=== PATIENT | female | born 1945 | race Caucasian/White ===

== ENCOUNTER 2024-04-17 01:47 | Inpatient (IN) | payer MEDICARE, OTHER ==
[~2024-04-17] VITALS: Ht 167.6 cm; Wt 77.1 kg
[2024-04-17] VITALS (14 sets, daily range): BP systolic 102–141; BP diastolic 61–74; TEMP 97.7–99.5; O2SAT 93–100
--- NOTE | 2024-04-17 01:50 | NUR ---
Patient was placed in the room at time of arrival, connected to monitor, O2, oxygen, RT was called and on site before patient arrived
--- NOTE | 2024-04-17 01:50 | NUR ---
At patient's arrival, she was seen by ALEX
[2024-04-17] MEDS ORDERED: ALBUTEROL SULFATE 2.5 MG/3 ML NEBU ONE (01:57)
[2024-04-17] MEDS ORDERED: IPRATROPIUM BROMIDE 0.5 MG/2.5 ML NEBU ONE (01:57)
[2024-04-17 02:09] LABS: BASOPHILS # (AUTO) 0.1 K/UL (0.0-0.2); BASOPHILS % (AUTO) 0.9 % (0.0-2.0); EOSINOPHILS # (AUTO) 0.8 K/uL (0.0-0.7); EOSINOPHILS % (AUTO) 10.1 % (0.0-7.0); HEMATOCRIT 31.8 % (31.2-41.9); HEMOGLOBIN 9.8 g/dL (10.9-14.3); LYMPHOCYTES # (AUTO) 3.8 K/uL (0.8-4.8); LYMPHOCYTES % (AUTO) 45.7 % (20.5-51.5); MEAN CORPUSCULAR HEMOGLOBIN 25.9 uug (24.7-32.8); MEAN CORPUSCULAR HGB CONC 31 g/dL (32.3-35.6); MEAN CORPUSCULAR VOLUME 84.1 fL (75.5-95.3); MONOCYTES # (AUTO) 0.6 K/uL (0.1-1.30); MONOCYTES % (AUTO) 7.2 % (0.0-11.0); NEUTROPHILS % (AUTO) 36.1 % (38.5-71.5); PLATELET COUNT (AUTO) 361 K/uL (179-408); RED BLOOD CELL COUNT(AUTO) 3.78 MIL/uL (3.63-4.92); WHITE BLOOD COUNT (AUTO) 8.3 K/uL (3.8-11.8)
[2024-04-17 02:13] LABS: DIFFERENTIAL COMMENT 1
[2024-04-17 02:16] LABS: CALCIUM 9.1 mg/dL (8.5-10.1); CARBON DIOXIDE 25 mmol/L (21-32); CHLORIDE 103 mmol/L (98-107); CREATININE 1.2 mg/dL (0.6-1.3); GLUCOSE 202 mg/dL (74-106); SODIUM SERUM 140 mmol/L (136-145); UREA NITROGEN, BLOOD 17 mg/dL (7-18)
[2024-04-17] MEDS: ALBUTEROL SULFATE 2.5 MG/3 ML NEBU NEB ONE (02:17)
[2024-04-17] MEDS: IPRATROPIUM BROMIDE 0.5 MG/2.5 ML NEBU NEB ONE (02:17)
[2024-04-17] MEDS ORDERED: methylPREDNISolone SOD SUCC 125 MG/2 ML VIAL ONE (02:27)
[2024-04-17 02:30] LABS: ALANINE AMINOTRANSFERASE 20 U/L (14-59); ALBUMIN 3.5 g/dL (3.4-5.0); ALKALINE PHOSPHATASE 106 U/L (50-136); ASPARTATE AMINOTRANSFERASE 14 U/L (15-37); BILIRUBIN,DIRECT 0.1 mg/dL (0.0-0.2); BILIRUBIN,TOTAL 0.2 mg/dL (0.2-1.0); NT-PRO BNP 176 pg/mL (0-125); TOTAL PROTEIN, SERUM 7.3 g/dL (6.4-8.2)
[2024-04-17] MEDS: methylPREDNISolone SOD SUCC 125 MG/2 ML VIAL IV ONE (02:30)
--- NOTE | 2024-04-17 02:30 | NUR ---
Administered medication as prescribed. Assisted patient into comfortable position. safety and comfort measures in place. No S/S of distressed noted.
[2024-04-17] MEDS ORDERED: CALC-1026 PO (03:06)
[2024-04-17] MEDS ORDERED: LOSA25TA3 PO (03:06)
[2024-04-17] MEDS ORDERED: ZOLP5TAB2 PO (03:06)
[2024-04-17] MEDS ORDERED: MAGN200T5 PO (03:06)
[2024-04-17] MEDS ORDERED: ROSU5TAB PO (03:08)
[2024-04-17] MEDS ORDERED: ZOLP10TA2 PO (03:11)
--- NOTE | 2024-04-17 03:28 | NUR ---
Assisted patient into comfortable position. Safety and comfort measures in place. Monitoring vital signs closely. No S/S of distress noted.
[2024-04-17 03:40] LABS: ABG BASE EXCESS -2.2 mmol/L (-2.0-2.0); ABG PH 7.367 (7.340-7.440); ABG PO2 88.4 mmHg (75.0-100.0); ABG SITE LEFT RADIAL; ABG TOTAL HEMOGLOBIN 10.3 G/dL (12.0-16.0); AaDO2 96.5 mmHg; COHb 0.3 % (0.0-3.9); MetHb 0.2 % (0.0-1.5); O2Hb 95.6 % (94.0-97.0)
--- NOTE | 2024-04-17 04:13 | NUR ---
Paged [facility] for panel call. Awaiting call back from DEANDRE Cunningham.
--- NOTE | 2024-04-17 04:21 | NUR ---
DEANDRE Cunningham on the phone with Dr. Marie for possible of admition.
[2024-04-17] MEDS ORDERED: REMEDY ESSENTIAL ZINC PASTE 113 GM TP PRN (04:30)
--- NOTE | 2024-04-17 04:31 | NUR ---
Called Tele, Report was given to Louis LEO.
[2024-04-17] MEDS ORDERED: ZOLPIDEM 5 MG TABLET PO PRN (05:15)
--- NOTE | 2024-04-17 06:53 | NUR ---
received patient at 0530, patient AO X 4, awake, NC 2 L, O2 sat 98%, skin intact, rt shoulder pain d/t fall, surgery last year. IV sites LFA, RTFA, patent, LFA works better. no reported pain, bed low lock, call light within reach. passed swallow evail. Will continue to monitor patient.
[2024-04-17 07:24] LABS: MAGNESIUM 2.2 mg/dL (1.8-2.4); PHOSPHOROUS 3.9 mg/dL (2.5-4.9)
--- NOTE | 2024-04-17 07:45 | NUR ---
RECEIVED PATIENT IN BED WITH EYES CLOSED AROUSABLE WITH VERBAL AND TACTILE STIMULI. ON O2 AT 2L NC SATURATING 96%, NO SS OF PAIN OR SOB.. SR ON MONITOR
--- NOTE | 2024-04-17 08:30 | NUR ---
SON CALLED AND WANTS MOM TO BE TRANSFERRED TO [place] UNDER THE CARE OF DR SMITH. ADVISED GIVEN PER PROTOCOL
[2024-04-17] MEDS: CALCIUM CARBONATE 500 MG TABLET PO SCH (08:39)
[2024-04-17] MEDS: MAGNESIUM OXIDE 400 MG TABLET PO SCH (08:40)
[2024-04-17] MEDS: LOSARTAN POTASSIUM 25 MG TABLET PO SCH (09:00)
--- NOTE | 2024-04-17 10:06 | NUR ---
OBTAINED ORDERS FROM DR. WILLOW Garcia FOR PT EVAL/TX. ORDER NOTED AND CARRIED OUT.
[2024-04-17] MEDS ORDERED: FLUO20CA42 PO (10:41)
[2024-04-17] MEDS ORDERED: IPRA3AMP23 IH (10:41)
[2024-04-17] MEDS ORDERED: AMLO-212 PO (10:41)
--- NOTE | 2024-04-17 11:21 | NUR ---
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
[2024-04-17] MEDS: methylPREDNISolone SOD SUCC 40 MG/ML VIAL IV SCH (11:54)
[2024-04-17] MEDS: IPRATROPIUM BROMIDE 0.5 MG/2.5 ML NEBU NEB PRN (13:25)
[2024-04-17] MEDS: ALBUTEROL SULFATE 2.5 MG/ 0.5 ML NEBU NEB PRN (13:25)
--- NOTE | 2024-04-17 13:32 | NUR ---
C/O SOB WITH ACCOMPANYING ANXIETY O2 SATS ON 3L NC 95%, DENIES CHEST PAIN. PRN BREATHING TX GIVEN AND WILL OBSERVE. SR/ST ON MONITOR
[2024-04-17] MEDS: ACETAMINOPHEN 325 MG TABLET PO PRN (13:42)
[2024-04-17] MEDS: FLUOXETINE HCL 20 MG CAPSULE PO SCH (13:42)
--- NOTE | 2024-04-17 13:42 | NUR ---
MEDICATED WITH TYLENOL FOR ROBERSON 02/10 WILL OBSERVE
[2024-04-17] MEDS: ONDANSETRON 4 MG/2 ML VIAL IV PRN (16:57)
[2024-04-17] MEDS: levoFLOXacin 500 MG/D5W 500 MG in PREMIXED 1 EACH IV SCH (18:20)
--- NOTE | 2024-04-17 18:31 | NUR ---
medicated again with tylenol for massey 03/12 will observe
--- NOTE | 2024-04-17 18:47 | NUR ---
STARTED ON LEVAQUIN FOR SUSPECTED INFECTION PER HOSPITALIST, SEE NOTES. AFEBRILE. SR ON MONITOR
--- NOTE | 2024-04-17 19:35 | NUR ---
Received patient ambulating to the bathroom. She is AAOx4, sinus rhythm on tele monitor. Supplemental O2 running at 3L/min via nasal cannula. SOB on exertion, upon returning to bed. Provided education on breathing techniques. No complaints of pain or discomfort at this time. IV site on left forearm is intact and patent, saline locked. Safety measures in place. Call light within easy reach.
[2024-04-17] MEDS: ATORVASTATIN 10 MG TABLET PO SCH (20:23)
[2024-04-17] MEDS: ZOLPIDEM 5 MG TABLET PO PRN (20:25)
--- NOTE | 2024-04-17 21:40 | NUR ---
Patient complaining of SOB. Saturation of 95% on 3L via NC. Again reminded patient to breath through pursed lips. Called RT for breathing treatment. Monitoring ongoing.
[2024-04-18] VITALS (12 sets, daily range): BP systolic 100–144; BP diastolic 52–79; TEMP 97.6–98.5; O2SAT 95–99
--- NOTE | 2024-04-18 05:10 | NUR ---
Patient refused Solu-Medrol citing sever osteoporosis. Explained purpose and benefits, however patient continued to refuse. Medication was already drawn up and therefore discarded.
[2024-04-18 07:29] LABS: BASOPHILS % (AUTO) 0.1 % (0.0-2.0); LYMPHOCYTES # (AUTO) 0.7 K/uL (0.8-4.8); LYMPHOCYTES % (AUTO) 5.4 % (20.5-51.5); MEAN CORPUSCULAR HEMOGLOBIN 26.4 uug (24.7-32.8); MEAN CORPUSCULAR HGB CONC 32 g/dL (32.3-35.6); MEAN CORPUSCULAR VOLUME 82.1 fL (75.5-95.3); MONOCYTES # (AUTO) 0.3 K/uL (0.1-1.30); MONOCYTES % (AUTO) 2.5 % (0.0-11.0); NEUTROPHILS # (AUTO) 11.6 K/uL (1.8-8.9); PLATELET COUNT (AUTO) 334 K/uL (179-408); RED BLOOD CELL COUNT(AUTO) 3.41 MIL/uL (3.63-4.92); RED CELL DISTRIBUTION WIDTH 18.4 % (12.3-17.7); WHITE BLOOD COUNT (AUTO) 12.6 K/uL (3.8-11.8)
--- NOTE | 2024-04-18 07:30 | NUR ---
0730 PT LAYING IN THE BED A/OX4 ON 3L NC SAT 97%, NO SOB OR DISTRESS NOTED, NO COMPLAIN OF PAIN. IV SITE IS INTACT AND PATENT. PT IS SINUS RHYTHM ON MONITOR. SCHEDULED MEDICATIONS ADMINISTERED, PT REFUSED MAGNESIUM. SAFETY MEASURES IN PLACE, CALL LIGHT IN REACH. 0900 RECEIVED A CALL FROM THE SON JONELLE, HE WANTS TO KNOW THE UPDATES (MD NOTIFIED), PLAN FOR THE DISCHARGE. [phone]
[2024-04-18 07:34] LABS: DIFFERENTIAL COMMENT 1
[2024-04-18 07:45] LABS: ALANINE AMINOTRANSFERASE 19 U/L (14-59); ALBUMIN 3.2 g/dL (3.4-5.0); ALKALINE PHOSPHATASE 83 U/L (50-136); ASPARTATE AMINOTRANSFERASE 6 U/L (15-37); BILIRUBIN,TOTAL 0.2 mg/dL (0.2-1.0); CALCIUM 8.8 mg/dL (8.5-10.1); CARBON DIOXIDE 28 mmol/L (21-32); CHLORIDE 104 mmol/L (98-107); CHOLESTEROL 172 mg/dL (<200); CREATININE 0.6 mg/dL (0.6-1.3); GLUCOSE 133 mg/dL (74-106); HDL CHOLESTEROL 97 mg/dL (40-60); MAGNESIUM 2.3 mg/dL (1.8-2.4); PHOSPHOROUS 3.7 mg/dL (2.5-4.9); POTASSIUM 4.5 mmol/L (3.5-5.1); SODIUM SERUM 139 mmol/L (136-145); TOTAL PROTEIN, SERUM 6.7 g/dL (6.4-8.2); TRIGLYCERIDES 35 MG/DL (30-150); UREA NITROGEN, BLOOD 14 mg/dL (7-18)
[2024-04-18 08:01] LABS: IRON, SERUM 14 ug/dL (50-175)
[2024-04-18] MEDS: LORATADINE 10 MG TABLET PO SCH (08:51)
[2024-04-18] MEDS: methylPREDNISolone SOD SUCC 40 MG/ML VIAL IV SCH (08:52)
[2024-04-18 09:11] LABS: THYROID STIMULATING HORMONE 0.299 mIU/mL (0.358-3.740)
[2024-04-18] MEDS: IPRATROPIUM BROMIDE 0.5 MG/2.5 ML NEBU NEB SCH (12:07)
[2024-04-18] MEDS: ALBUTEROL SULFATE 2.5 MG/3 ML NEBU NEB SCH (12:07)
[2024-04-18] MEDS: MONTELUKAST SODIUM 10 MG TABLET PO SCH (17:23)
[2024-04-18] MEDS: MAG HYDROX/AL HYDROX/SIMETH 30 ML LIQUID UDC PO PRN (19:44)
--- NOTE | 2024-04-18 20:19 | NUR ---
received patient alert oriented, no sob no chest pain, tele monitor sinus rhythm 83, given maalox for stomach upset but not effective, notify John Collins with order of protonix 40 mg po once.
[2024-04-18] MEDS: PANTOPRAZOLE SODIUM 40 MG TABLET.DR PO ONE (20:29)
--- NOTE | 2024-04-18 20:31 | NUR ---
solu medrol iv not given, no iv lines, refused to have new iv lines, gets agitated. patient alert oriented,
--- NOTE | 2024-04-18 22:27 | NUR ---
notify ekaterina cadet not working yet, request tums, with order.
[2024-04-18] MEDS: CALCIUM CARBONATE 500 MG TAB.CHEW PO PRN (22:41)
--- NOTE | 2024-04-18 22:43 | NUR ---
patient still awake, has lots of anxiety, refused to take any meds for anxiety, complain of constipation, offered MOM but refused.
[2024-04-19] MEDS: MAGNESIUM HYDROXIDE 30 ML LIQUID UDC PO PRN (00:55)
--- NOTE | 2024-04-19 00:57 | NUR ---
patient unable to sleep, given Ambien 5mg repeat dose per order. request MOM for constipation, cont to monitor.
[2024-04-19 05:59] VITALS: O2SAT 98
[2024-04-19 07:09] LABS: BASOPHILS % (AUTO) 0.1 % (0.0-2.0); EOSINOPHILS % (AUTO) 0.1 % (0.0-7.0); HEMATOCRIT 28.6 % (31.2-41.9); LYMPHOCYTES # (AUTO) 2.8 K/uL (0.8-4.8); LYMPHOCYTES % (AUTO) 28.7 % (20.5-51.5); MEAN CORPUSCULAR HEMOGLOBIN 26.2 uug (24.7-32.8); MEAN CORPUSCULAR HGB CONC 32 g/dL (32.3-35.6); MEAN CORPUSCULAR VOLUME 82.6 fL (75.5-95.3); MONOCYTES # (AUTO) 0.8 K/uL (0.1-1.30); MONOCYTES % (AUTO) 8.5 % (0.0-11.0); NEUTROPHILS # (AUTO) 6.1 K/uL (1.8-8.9); NEUTROPHILS % (AUTO) 62.6 % (38.5-71.5); PLATELET COUNT (AUTO) 321 K/uL (179-408); RED BLOOD CELL COUNT(AUTO) 3.46 MIL/uL (3.63-4.92); RED CELL DISTRIBUTION WIDTH 18.2 % (12.3-17.7); WHITE BLOOD COUNT (AUTO) 9.8 K/uL (3.8-11.8)
[2024-04-19 07:23] LABS: C-REACTIVE PROTEIN 0.05 mg/dL (0.00-0.30); DIFFERENTIAL COMMENT 1; MAGNESIUM 2.5 mg/dL (1.8-2.4)
[2024-04-19 07:24] LABS: CALCIUM 8.8 mg/dL (8.5-10.1); CARBON DIOXIDE 31 mmol/L (21-32); CHLORIDE 106 mmol/L (98-107); CREATININE 0.7 mg/dL (0.6-1.3); GLUCOSE 87 mg/dL (74-106); POTASSIUM 3.9 mmol/L (3.5-5.1); SODIUM SERUM 142 mmol/L (136-145); UREA NITROGEN, BLOOD 23 mg/dL (7-18)
[2024-04-19 07:33] VITALS: O2SAT 98
[2024-04-19 07:47] LABS: THYROID STIMULATING HORMONE 0.618 mIU/mL (0.358-3.740)
[2024-04-19] MEDS ORDERED: MAGNESIUM OXIDE 400 MG TABLET PO SCH (09:00)
--- NOTE | 2024-04-19 09:20 | NUR ---
0730 PT LAYING IN THE BED A/OX4 ON RA SAT 97%, NO SOB OR DISTRESS NOTED, NO COMPLAIN OF ABDOMINAL PAIN, N/V. PT IS SINUS RHYTHM ON MONITOR. SCHEDULED MEDICATIONS ADMINISTERED, PT REFUSED CALCIUM AND SOLU MEDROL. PT IS AGITATED BECAUSE WASN'T ABLE TO SLEEP THE WHOLE NIGHT. SAFETY MEASURES IN PLACE, CALL LIGHT IN REACH.
[2024-04-19 11:35] VITALS: O2SAT 95
[2024-04-19 11:45] VITALS: O2SAT 99
[2024-04-19 12:00] VITALS: BP 150/81; TEMP 97.2; O2SAT 97
[2024-04-19] MEDS ORDERED: MONT10TA33 PO (12:53)
[2024-04-19] MEDS ORDERED: LORA-114 PO (12:53)
--- NOTE | 2024-04-19 13:49 | NUR ---
1346 PT DISCHARGED VS [facility]NL NO SOB OR DISTRESS NOTED, NO COMPLAIN OF PAIN. DISCHARGE INSTRUCTIONS PROVIDED PT VERBALIZED UNDERSTANDING. PT LEFT VIA THE PRIVATE CAR WITH DAUGHTER BLAYNE
== END 2024-04-19 14:30 | disposition home or self-care (01) | DRG 190 ==
LOC: ER 01:54 → TELE3 04:21 → MEDSURG3 04-19 09:45
PROVIDERS: ATTEND Internal Medicine
DX: J43.9 Emphysema, unspecified (principal); J96.21 Acute and chronic respiratory failure with hypoxia; J96.22 Acute and chronic respiratory failure with hypercapnia; J44.0 Chronic obstructive pulmonary disease with (acute) lower respiratory infection; E44.1 Mild protein-calorie malnutrition; J31.0 Chronic rhinitis; M81.0 Age-related osteoporosis without current pathological fracture; R94.31 Abnormal electrocardiogram [ECG] [EKG]; J20.8 Acute bronchitis due to other specified organisms; E66.9 Obesity, unspecified; E88.09 Other disorders of plasma-protein metabolism, not elsewhere classified; Z68.27 Body mass index [BMI] 27.0-27.9, adult; E78.5 Hyperlipidemia, unspecified; D50.9 Iron deficiency anemia, unspecified; M15.9 Polyosteoarthritis, unspecified; I10 Essential (primary) hypertension; Z87.891 Personal history of nicotine dependence; Z90.710 Acquired absence of both cervix and uterus; Z91.012 Allergy to eggs; Z85.51 Personal history of malignant neoplasm of bladder; Z99.81 Dependence on supplemental oxygen
CPT/HCPCS: 36415; 36600; 71045; 82378; 83550; 83735; 84100; 84443; 84484; 85025; 86140; 93005; 94640; A4606; A4663; G0378; J1956; J2405; J2919; J3590